=== PATIENT | female | born 1960 | race African-American/Black ===

== ENCOUNTER 2019-01-29 01:01 | Inpatient (IN) | payer BC ==
[~2019-01-29] VITALS: Ht 160 cm; Wt 88.5 kg
[2019-01-29] MEDS ORDERED: SODIUM CHLORIDE 0.9% 1,000 ML IV ONE (02:11)
[2019-01-29] MEDS ORDERED: ONDANSETRON HCL 4MG/2ML INJ IV STA (02:11)
[2019-01-29 02:38] LABS: HEMATOCRIT. 44.6 % (36.0-48.0); HEMOGLOBIN. 15.2 g/dL (12.0-16.0); MEAN CORPUSCULAR HEMOGLOBIN 30.3 pg (28.0-32.0); MEAN PLATELET VOLUME 10.4 fl (7.4-10.4); PLATELET 193 x1000/uL (130-400); RED BLOOD CELL COUNT 5.02 mill/uL (4.2-5.4); RED CELL DISTRIBUTION WIDTH 13.4 % (11.6-14.6)
[2019-01-29 02:42] LABS: CHLORIDE 101 mEq/L (98-107)
[2019-01-29 02:46] LABS: CLARITY URINE CLEAR (CLEAR); COLOR URINE YELLOW (YELLOW); KETONES URINE TRACE (NEGATIVE); LEUKOCYTE ESTERASE URINE TRACE (NEGATIVE); NITRITE URINE NEGATIVE (NEGATIVE); OCCULT BLOOD URINE NEGATIVE (NEGATIVE); PROTEIN URINE NEGATIVE (NEGATIVE); UROBILINOGEN URINE 0.2 E.U./dL (0.2-1.0)
[2019-01-29 02:50] LABS: BETA HYDROXYBUTYRATE 0.1 mMol/L (0.0-0.3)
[2019-01-29] MEDS ORDERED: SODIUM CHLORIDE 0.9% 1000ML BAG (SEPSIS BOLUS) IV ONE (03:30)
[2019-01-29 03:35] LABS: PLATELET ESTIMATE NORMAL
[2019-01-29] MEDS ORDERED: LEVOFLOXACIN 750MG PREMIX 150 ML IV SCH (03:54)
[2019-01-29] MEDS ORDERED: METRONIDAZOLE 500 MG PREMIX 100 ML IV SCH (03:54)
[2019-01-29] MEDS ORDERED: ACETAMINOPHEN 325MG TABLET PO ONE (04:30)
[2019-01-29] MEDS ORDERED: IBUPROFEN 600MG TABLET PO SCH (04:41)
[2019-01-29] MEDS ORDERED: CLONIDINE 0.1MG TABLET PO PRN (08:45)
[2019-01-29] MEDS ORDERED: IPRATROPIUM/ALBUTEROL 0.5-3(2.5)MG/3ML NEB INH PRN (08:45)
[2019-01-29] MEDS ORDERED: NITROGLYCERIN 0.4MG TABLET SL SL PRN (08:45)
[2019-01-29] MEDS ORDERED: ONDANSETRON HCL 4MG/2ML INJ IV PRN (08:45)
[2019-01-29] MEDS ORDERED: MAGNESIUM/ALUMINUM HYDROXIDE/SIMETHICONE 30ML UDC PO PRN (08:45)
[2019-01-29] MEDS ORDERED: GUAIFENESIN 200MG/10ML SUGAR FREE UDC PO PRN (08:45)
[2019-01-29] MEDS ORDERED: DEXTROSE 50% WATER 50ML SYRINGE IV PRN (08:45)
[2019-01-29] MEDS ORDERED: DOCUSATE SODIUM 100MG CAPSULE PO PRN (08:45)
[2019-01-29] MEDS ORDERED: IOHEXOL-300 100 ML BOTTLE ONE (10:02)
[2019-01-29 10:25] LABS: FOLIC ACID (FOLATE) SERUM >20 ng/mL ng/mL (>5.38)
[2019-01-29 10:37] LABS: VITAMIN B12 SERUM 760 pg/mL (211-911)
[2019-01-29 10:45] VITALS: BP 100/66
[2019-01-29] MEDS ORDERED: TRAMADOL 50MG TABLET PO PRN (11:00)
[2019-01-29] MEDS: INSULIN LISPRO 100 UNITS/ML SUBCUT SCH ×4 (11:00→21:00)
[2019-01-29] MEDS ORDERED: MORPHINE SULFATE 4 MG/ML CPJ (NOT FOR IM USE) IV PRN (11:00)
[2019-01-29] MEDS: BLOOD SUGAR DIAGNOSTIC STRIP TEST SCH ×4 (11:45→21:23)
[2019-01-29 12:00] VITALS: BP 99/53
[2019-01-29] MEDS: DEXT 5%/0.45% NACL 1000ML 1,000 ML IV SCH (12:07)
[2019-01-29] MEDS: PANTOPRAZOLE SODIUM 40 MG/VIAL IV SCH (12:07)
[2019-01-29] MEDS: ENOXAPARIN 40MG/0.4ML SYR SUBCUT SCH (12:08)
[2019-01-29] MEDS: CEFTRIAXONE 1 G PREMIX 50 ML IV SCH (13:52)
[2019-01-29 14:00] VITALS: BP 103/67
[2019-01-29 14:12] LABS: *AMPHETAMINES SCREEN URINE NEGATIVE (NEGATIVE)
[2019-01-29 14:13] LABS: *BARBITURATES SCREEN URINE NEGATIVE (NEGATIVE); *BENZODIAZEPINES SCREEN URINE NEGATIVE (NEGATIVE); *COCAINE SCREEN URINE NEGATIVE (NEGATIVE); METHADONE URINE SCREEN NEGATIVE (NEGATIVE); OPIATES URINE SCREEN NEGATIVE (NEGATIVE); PHENCYCLIDINE URINE SCREEN NEGATIVE (NEGATIVE)
[2019-01-29 14:14] LABS: CANNABINOID URINE SCREEN NEGATIVE (NEGATIVE)
[2019-01-29 16:03] LABS: CREATINE KINASE 100 IU/L (26-192)
[2019-01-29 16:04] LABS: CREATINE KINASE MB FRACTION 1.3 ng/mL (0.5-3.6)
[2019-01-29 18:00] VITALS: BP 130/76
[2019-01-29 20:00] VITALS: BP 112/74
[2019-01-29] MEDS ORDERED: ZOLPIDEM TARTRATE 5MG TABLET PO PRN (21:00)
[2019-01-29] MEDS: HEMORRHOIDAL SUPP PR SCH (21:24)
[2019-01-29 22:00] VITALS: BP 134/69
[2019-01-29 22:59] LABS: CREATINE KINASE 102 IU/L (26-192)
[2019-01-29 23:00] LABS: CREATINE KINASE MB FRACTION 1.4 ng/mL (0.5-3.6)
[2019-01-29] MEDS: ACETAMINOPHEN 325MG TABLET PO PRN (23:55)
[2019-01-30] VITALS (8 sets, daily range): BP systolic 110–148; BP diastolic 61–80
[2019-01-30] MEDS ORDERED: LEVOFLOXACIN 500MG PREMIX 100 ML IV SCH (02:00)
[2019-01-30] MEDS: DEXT 5%/0.45% NACL 1000ML 1,000 ML IV SCH ×3 (05:44→17:59)
[2019-01-30] MEDS: ACETAMINOPHEN 325MG TABLET PO PRN (06:19)
[2019-01-30] MEDS: INSULIN LISPRO 100 UNITS/ML SUBCUT SCH ×4 (08:00→21:00)
[2019-01-30] MEDS: BLOOD SUGAR DIAGNOSTIC STRIP TEST SCH ×4 (08:16→21:28)
[2019-01-30] MEDS: PANTOPRAZOLE SODIUM 40 MG/VIAL IV SCH (08:24)
[2019-01-30] MEDS: HEMORRHOIDAL SUPP PR SCH ×2 (08:25→21:00)
[2019-01-30] MEDS: CEFTRIAXONE 1 G PREMIX 50 ML IV SCH (12:18)
[2019-01-30] MEDS: ENOXAPARIN 40MG/0.4ML SYR SUBCUT SCH (12:19)
[2019-01-31] VITALS: BP 111/58
[2019-01-31] MEDS ORDERED: LEVOFLOXACIN 500MG PREMIX 100 ML IV SCH (02:00)
[2019-01-31 04:00] VITALS: BP 135/76
[2019-01-31] MEDS: DEXT 5%/0.45% NACL 1000ML 1,000 ML IV SCH ×2 (04:56→09:58)
[2019-01-31] MEDS: BLOOD SUGAR DIAGNOSTIC STRIP TEST SCH (06:22)
[2019-01-31] MEDS: INSULIN LISPRO 100 UNITS/ML SUBCUT SCH (07:50)
[2019-01-31 08:00] VITALS: BP 115/68
[2019-01-31] MEDS: HEMORRHOIDAL SUPP PR SCH (09:00)
[2019-01-31] MEDS: PANTOPRAZOLE SODIUM 40 MG/VIAL IV SCH (09:57)
[2019-01-31 11:43] VITALS: BP 130/72
[2019-01-31 12:44] VITALS: BP 130/72
[2019-01-31] MEDS ORDERED: CEFTRIAXONE 1 G PREMIX 50 ML IV SCH (13:00)
== END 2019-01-31 15:13 | disposition home or self-care (01) | DRG 872 ==
LOC: ER 01:01 → 5EST 04:51 → EDBEDREQTM 05:00 → EDBEDREQ 05:00 → ENRESERV 07:50 → SUPCPDRO 08:53 → 6WST 01-30 14:25
PROVIDERS: ADMIT Internal Medicine; ATTEND Internal Medicine
DX: A41.9 Sepsis, unspecified organism (principal); E87.1 Hypo-osmolality and hyponatremia; N39.0 Urinary tract infection, site not specified; E11.9 Type 2 diabetes mellitus without complications; K52.9 Noninfective gastroenteritis and colitis, unspecified; R65.20 Severe sepsis without septic shock; Z90.710 Acquired absence of both cervix and uterus; Z90.49 Acquired absence of other specified parts of digestive tract
CPT/HCPCS: 36415; 71045; 74177; 80061; 80305; 82010; 82550; 82553; 82607; 82746; 82962; 83036; 83605; 84145; 84439; 84443; 84484; 87493; 93005; 93970; 96365; 96375; 99291; C9113; J0696; J1650; J1815; J1956; J2405; J3490; J7030; J7040; Q9967

== ENCOUNTER 2022-06-30 17:55 | Emergency (ER) | payer BC, OTHER ==
[~2022-06-30] VITALS: Ht 160 cm; Wt 77.0 kg
[2022-06-30] MEDS ORDERED: KETOROLAC 60MG/2ML VIAL IM ONE (21:15)
[2022-06-30] MEDS ORDERED: ACETAMINOPHEN 325MG TABLET PO ONE (21:15)
[2022-06-30] MEDS ORDERED: LIDOCAINE 5% PATCH TOP SCH (21:15)
[2022-06-30] MEDS ORDERED: METHOCARBAMOL 750MG TABLET PO SCH (21:15)
[2022-06-30] MEDS ORDERED: METH-653 MT (23:00)
[2022-06-30] MEDS ORDERED: IBUP-2028 MT (23:00)
[2022-06-30] MEDS ORDERED: LIDO1ADH23 TP (23:00)
[2022-06-30 23:10] VITALS: BP 135/82
== END 2022-06-30 23:20 | disposition home or self-care (01) ==
LOC: ER 17:55
DX: M79.18 Myalgia, other site (principal); M25.572 Pain in left ankle and joints of left foot; M79.671 Pain in right foot; G89.11 Acute pain due to trauma; E11.9 Type 2 diabetes mellitus without complications; W01.198A Fall on same level from slipping, tripping and stumbling with subsequent striking against other object, initial encounter; Y93.89 Activity, other specified; Y92.89 Other specified places as the place of occurrence of the external cause; Y99.0 Civilian activity done for income or pay
CPT/HCPCS: 73610; 73630; 96372; 99284; J1885

== ENCOUNTER 2023-09-12 18:00 | Emergency (ER) | payer OTHER ==
[~2023-09-12] VITALS: Ht 160 cm; Wt 80.0 kg
[~2023-09-12 18:00] MED LIST: IBUP-2028 MT; LIDO1ADH23 TP; METH-653 MT
[2023-09-12 18:14] VITALS: TEMP 97.7; O2SAT 98
[2023-09-12 23:04] LABS: BASOPHILS % 0.8 % (0.0-2.0); DIFFERENTIAL COMMENT 0; EOSINOPHILS % 4.8 % (0.0-5.0); HEMATOCRIT. 44.3 % (36.0-48.0); HEMOGLOBIN. 14.6 g/dL (12.0-16.0); LYMPHOCYTES % 52.6 % (20.0-50.0); MEAN CORPUSCULAR HEMOGLOBIN 30.2 pg (28.0-32.0); MEAN CORPUSCULAR VOLUME 91.6 fL (81.0-99.0); MEAN PLATELET VOLUME 10.5 fl (7.4-10.4); NEUTROPHILS % 33.8 % (40.0-76.0); PLATELET 205 x1000/uL (130-400); RED BLOOD CELL COUNT 4.84 mill/uL (4.2-5.4); RED CELL DISTRIBUTION WIDTH 12.9 % (11.6-14.6)
[2023-09-12 23:19] LABS: ALANINE AMINOTRANSFERASE 49 IU/L (10-49); ALBUMIN 4.6 g/dL (3.2-4.8); ASPARTATE AMINOTRANSFERASE 35 IU/L (<34); BILIRUBIN TOTAL 0.4 mg/dL (0.1-1.0); CALCIUM 9.4 mg/dL (8.7-10.4); CARBON DIOXIDE 26 mEq/L (21-32); CHLORIDE 103 mEq/L (98-107); CREATININE 0.7 mg/dL (0.6-1.0); GLUCOSE 150 mg/dL (70-105); PROTEIN TOTAL 7.9 g/dL (6.0-8.3); SODIUM 138 mEq/L (136-145); TROPONIN I HIGH SENSITIVITY < 4 ng/L (3.0-34); UREA NITROGEN BLOOD 15 mg/dL (9-23)
[2023-09-13 04:03] VITALS: BP 131/71; PULSE 61; RESP 18
[2023-09-13] MEDS ORDERED: IOHEXOL-350 100 ML BOTTLE ONE (06:07)
== END 2023-09-13 04:04 | disposition home or self-care (01) ==
LOC: ER 18:00
DX: R07.89 Other chest pain (principal); R79.1 Abnormal coagulation profile; E11.9 Type 2 diabetes mellitus without complications; Z90.49 Acquired absence of other specified parts of digestive tract
CPT/HCPCS: 99285; 71045; 80053; 83880; 85025; 85379; 84484; 36415; 93005; 71275; Q9967

== ENCOUNTER 2024-02-29 15:33 | Emergency (ER) | payer OTHER ==
[~2024-02-29] VITALS: Ht 162.6 cm; Wt 81.0 kg
[2024-02-29 15:36] VITALS: O2SAT 95
[2024-02-29 18:55] VITALS: BP 133/61; PULSE 95; RESP 18; TEMP 97.8
== END 2024-02-29 19:04 | disposition home or self-care (01) ==
LOC: ER 15:33
DX: R51.9 Headache, unspecified (principal); M25.561 Pain in right knee; M25.511 Pain in right shoulder; E78.00 Pure hypercholesterolemia, unspecified; E11.9 Type 2 diabetes mellitus without complications; Z90.49 Acquired absence of other specified parts of digestive tract; W18.09XA Striking against other object with subsequent fall, initial encounter; Y93.89 Activity, other specified; Y92.89 Other specified places as the place of occurrence of the external cause; Y99.8 Other external cause status
CPT/HCPCS: 73030; 73080; 73562; 99284

== ENCOUNTER 2025-07-09 13:47 | Emergency (ER) | payer OTHER ==
[~2025-07-09] VITALS: Ht 160 cm; Wt 82.0 kg
[2025-07-09 13:55] VITALS: O2SAT 95
[2025-07-09 17:01] VITALS: BP 140/79; PULSE 76; RESP 16; TEMP 37.1; O2SAT 95
== END 2025-07-09 17:03 | disposition home or self-care (01) ==
LOC: ER 14:14
DX: S09.8XXA Other specified injuries of head, initial encounter (principal); R51.9 Headache, unspecified; M54.2 Cervicalgia; E11.9 Type 2 diabetes mellitus without complications; E78.00 Pure hypercholesterolemia, unspecified; H91.92 Unspecified hearing loss, left ear; Z90.49 Acquired absence of other specified parts of digestive tract; Z90.710 Acquired absence of both cervix and uterus; X58.XXXA Exposure to other specified factors, initial encounter; Y93.89 Activity, other specified; Y92.89 Other specified places as the place of occurrence of the external cause; Y99.8 Other external cause status
CPT/HCPCS: 70486; 99284